=== PATIENT | female | born 1965 | race Caucasian/White ===

== ENCOUNTER 2016-06-16 10:55 | Emergency (ER) | payer MEDICAID, OTHER ==
[~2016-06-16] VITALS: Ht 162.6 cm; Wt 56.7 kg
[~2016-06-16 10:55] MED LIST: ALPR2TAB2 PO; CARI250T PO; LEVO25TA2 PO; LISI30TA4 PO; METH40TA2 PO
[2016-06-16 11:24] VITALS: BP 137/78
== END 2016-06-16 11:26 | disposition home or self-care (01) ==
LOC: ER 10:58
DX: R68.84 Jaw pain (principal); R56.9 Unspecified convulsions; F17.210 Nicotine dependence, cigarettes, uncomplicated; Z88.0 Allergy status to penicillin
CPT/HCPCS: 99283; A4606; Z7610

== ENCOUNTER 2016-08-13 10:02 | Emergency (ER) | payer MEDICAID ==
[~2016-08-13] VITALS: Ht 167.6 cm; Wt 70.8 kg
[2016-08-13] MEDS ORDERED: ONDANSETRON HCL/PF 4 MG/2 ML VIAL ONE (11:52)
[2016-08-13] MEDS ORDERED: IV SET PRIMARY 1 EA INFUS.SET MC ONE (11:52)
[2016-08-13] MEDS ORDERED: IV NS 0.9% 1,000 ML ONE (11:52)
[2016-08-13 11:58] LABS: BASOPHILS % (AUTO) 0.4 % (0.0-2.0); EOSINOPHILS # (AUTO) 0.2 /CMM (0.0-0.7); EOSINOPHILS % (AUTO) 2.8 % (0.0-6.0); HEMATOCRIT 39 % (33-45); LYMPHOCYTES # (AUTO) 1.6 /CMM (0.8-4.8); LYMPHOCYTES % (AUTO) 23.9 % (20.0-44.0); MEAN CORPUSCULAR HEMOGLOBIN 30 PG (26.0-33.0); MEAN CORPUSCULAR HGB CONC 34 g/dl (31.0-36.0); MEAN CORPUSCULAR VOLUME 88 fL (82-100); MONOCYTES # (AUTO) 0.5 /CMM (0.1-1.30); MONOCYTES % (AUTO) 6.9 % (2.0-12.0); NEUTROPHILS # (AUTO) 4.3 /CMM (1.8-8.9); PLATELET COUNT (AUTO) 243 /CMM (150-450); RED BLOOD CELL COUNT(AUTO) 4.38 MIL/uL (4.0-5.2); WHITE BLOOD COUNT (AUTO) 6.6 K/uL (4.3-11.0)
[2016-08-13] MEDS ORDERED: ONDANSETRON HCL/PF 4 MG/2 ML VIAL IVP ONE (12:00)
[2016-08-13] MEDS ORDERED: IV NS 0.9% 1,000 ML BAG IV ONE (12:00)
--- NOTE | 2016-08-13 12:05 | NUR ---
PT AMBULATORY TO ER BED 16. C/O NAUSEA AND VOMITING FOR "MONTHS" STATES WORST THE LAST WEEK. BEEN TO OTHER ER FOR SAME REASON. VSS. NAD NOTED. AWAITING MD DALAL.
--- NOTE | 2016-08-13 12:08 | NUR ---
DR LISA AT BEDSIDE FOR EVAL.
[2016-08-13 12:21] LABS: PROTHROMBIN TIME 10.7 SECS (9.5-12.7)
[2016-08-13 12:48] LABS: CALCIUM, SERUM 8.6 mg/dL (8.5-10.1); CREATININE 0.8 mg/dL (0.6-1.3); POTASSIUM 3.6 mmol/L (3.5-5.1)
[2016-08-13 12:54] LABS: ALBUMIN 3.7 g/dL (3.4-5.0); BILIRUBIN,DIRECT 0.1 mg/dL (0.0-0.2); BILIRUBIN,TOTAL 0.3 mg/dL (0.2-1.0)
--- NOTE | 2016-08-13 13:35 | NUR ---
Patient discharged to home in stable condition. Written and verbal after care instructions given. Patient verbalizes understanding of instruction.IV removed. Catheter intact and site benign. Pressure and 4x4 applied to site. No bleeding noted.
[2016-08-13 13:36] VITALS: BP 132/76
== END 2016-08-13 13:37 | disposition home or self-care (01) ==
LOC: ER 10:03
DX: R11.2 Nausea with vomiting, unspecified (principal); R19.7 Diarrhea, unspecified; N63 Unspecified lump in breast; G40.909 Epilepsy, unspecified, not intractable, without status epilepticus; M19.90 Unspecified osteoarthritis, unspecified site; F41.9 Anxiety disorder, unspecified; F32.9 Major depressive disorder, single episode, unspecified; E03.9 Hypothyroidism, unspecified; B19.20 Unspecified viral hepatitis C without hepatic coma; F17.210 Nicotine dependence, cigarettes, uncomplicated; Z88.0 Allergy status to penicillin
CPT/HCPCS: 36415; 80048-TC; 80076-TC; 83690-TC; 85025-TC; 85730-TC; A4606; J2405; J7030; Z7610

== ENCOUNTER 2021-07-08 09:11 | Emergency (ER) | payer OTHER ==
[~2021-07-08] VITALS: Ht 162.6 cm; Wt 72.6 kg
[2021-07-08 09:32] VITALS: BP 117/68
--- NOTE | 2021-07-08 10:40 | NUR ---
WAITING FOR CENTRAL SUPPLY TO BRING CANE
--- NOTE | 2021-07-08 10:49 | NUR ---
Patient discharged to home in stable condition. Written and verbal after care instructions given. Patient verbalizes understanding of instruction.
== END 2021-07-08 11:13 | disposition home or self-care (01) ==
LOC: ER 09:16
DX: M17.12 Unilateral primary osteoarthritis, left knee (principal); F41.9 Anxiety disorder, unspecified; F32.9 Major depressive disorder, single episode, unspecified; M79.7 Fibromyalgia; E03.9 Hypothyroidism, unspecified; G89.29 Other chronic pain; M25.511 Pain in right shoulder; I51.7 Cardiomegaly; Z86.19 Personal history of other infectious and parasitic diseases; Z86.69 Personal history of other diseases of the nervous system and sense organs; Z88.0 Allergy status to penicillin; Z79.811 Long term (current) use of aromatase inhibitors; Z79.1 Long term (current) use of non-steroidal anti-inflammatories (NSAID); Z79.899 Other long term (current) drug therapy
CPT/HCPCS: 73564-TC

== ENCOUNTER 2022-12-21 04:52 | Emergency (ER) | payer OTHER ==
[~2022-12-21] VITALS: Ht 162.6 cm; Wt 86.2 kg
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
--- NOTE | 2022-12-21 05:35 | NUR ---
PT TAKEN TO CT W/ TECH
--- NOTE | 2022-12-21 05:54 | NUR ---
PATIENT RERTUNE TO ROOM FROM CT
[2022-12-21] MEDS ORDERED: ACETAMINOPHEN ES 500 MG TABLET ONE (06:54)
[2022-12-21] MEDS ORDERED: ACETAMINOPHEN ES 500 MG TABLET PO ONE (07:00)
--- NOTE | 2022-12-21 07:15 | NUR ---
Patient discharged to home in stable condition. Written and verbal after care instructions given. Patient verbalizes understanding of instruction.
[2022-12-21 07:18] VITALS: BP 138/80; TEMP 98.1; O2SAT 98
== END 2022-12-21 07:19 | disposition home or self-care (01) ==
LOC: ER 04:58
DX: S90.31XA Contusion of right foot, initial encounter (principal); G40.909 Epilepsy, unspecified, not intractable, without status epilepticus; F41.9 Anxiety disorder, unspecified; F32.A Depression, unspecified; F17.200 Nicotine dependence, unspecified, uncomplicated; Z98.890 Other specified postprocedural states; Z79.899 Other long term (current) drug therapy; Z88.0 Allergy status to penicillin; V09.9XXA Pedestrian injured in unspecified transport accident, initial encounter; Y93.89 Activity, other specified; Y92.89 Other specified places as the place of occurrence of the external cause; Y99.8 Other external cause status
CPT/HCPCS: 70450-TC; 72131-TC; 73030-TC; 73590-TC; 73630-TC

== ENCOUNTER 2023-04-11 08:35 | Emergency (ER) | payer OTHER ==
[~2023-04-11] VITALS: Ht 162.6 cm; Wt 81.6 kg
[2023-04-11] MEDS ORDERED: ACETAMINOPHEN ES 500 MG TABLET ONE (08:57)
[2023-04-11] MEDS ORDERED: ACETAMINOPHEN ES 500 MG TABLET PO ONE (09:00)
[2023-04-11] MEDS ORDERED: IBUPROFEN 600 MG TABLET PO ONE (10:00)
[2023-04-11] MEDS ORDERED: IBUPROFEN 600 MG TABLET ONE (10:04)
[2023-04-11 10:23] VITALS: BP 125/86; TEMP 98.3; O2SAT 98
== END 2023-04-11 10:05 | disposition home or self-care (01) ==
LOC: ER 08:39
DX: S00.83XA Contusion of other part of head, initial encounter (principal); M19.90 Unspecified osteoarthritis, unspecified site; F41.9 Anxiety disorder, unspecified; F32.A Depression, unspecified; M79.7 Fibromyalgia; E03.9 Hypothyroidism, unspecified; W18.09XA Striking against other object with subsequent fall, initial encounter; Y93.89 Activity, other specified; Y92.89 Other specified places as the place of occurrence of the external cause; Y99.8 Other external cause status; Z88.0 Allergy status to penicillin
CPT/HCPCS: 70450-TC

== ENCOUNTER 2025-03-07 22:58 | Emergency (ER) | payer OTHER ==
[~2025-03-07] VITALS: Ht 167.6 cm; Wt 88.5 kg
[2025-03-07] MEDS ORDERED: OLANZAPINE 10 MG VIAL IM ONE (23:33)
[2025-03-07 23:38] LABS: PLATELET COUNT (AUTO) 324 K/uL (150-450); RED BLOOD CELL COUNT(AUTO) 3.83 MIL/uL (4.0-5.2); RED CELL DISTRIBUTION WIDTH 16.4 % (11.5-15.0); WHITE BLOOD COUNT (AUTO) 7.6 K/uL (4.3-11.0)
[2025-03-07] MEDS: OLANZAPINE 10 MG VIAL IM ONE (23:39)
[2025-03-07 23:47] LABS: CALCIUM, SERUM 10.2 mg/dL (8.5-10.1); CREATININE 1.2 mg/dL (0.6-1.3); SODIUM SERUM 141 mmol/L (136-145); UREA NITROGEN, BLOOD 21 mg/dL (7-18)
[2025-03-07 23:53] LABS: ASPARTATE AMINOTRANSFERASE 18 U/L (15-37); TOTAL PROTEIN, SERUM 7.3 g/dL (6.4-8.2)
[2025-03-08 00:48] LABS: APPEARANCE,URINE CLOUDY (CLEAR); BLOOD, URINE TRACE-INTA Ery/uL (NEGATIVE); LEUKOCYTE ESTERASE ,URINE 2+ (NEGATIVE); NITRITE, URINE NEGATIVE (NEGATIVE); UGLUCOSE NEGATIVE (NEGATIVE)
[2025-03-08 00:54] LABS: BARBITURATE, URINE NEGATIVE (NEGATIVE); COCCAINE, URINE NEGATIVE (NEGATIVE)
[2025-03-08 00:57] LABS: AMPHETAMINE, URINE POSITIVE (NEGATIVE); BENZODIAZEPINE, URINE POSITIVE (NEGATIVE); CANNABINOID, URINE POSITIVE (NEGATIVE); OPIATE, URINE POSITIVE (NEGATIVE)
[2025-03-08 01:06] LABS: ADD URINE CULTURE YES; SQUAMOUS EPITHELIAL CELL,UR 0-2 /HPF (None Seen)
[2025-03-08] MEDS ORDERED: LEVOFLOXACIN (250MG) 250 MG TABLET ONE (01:50)
[2025-03-08] MEDS: LEVOFLOXACIN (250MG) 250 MG TABLET PO ONE (01:57)
[2025-03-08 05:25] VITALS: BP 130/75; TEMP 98; O2SAT 98
== END 2025-03-08 05:26 | disposition home or self-care (01) ==
LOC: ER 23:01
DX: N39.0 Urinary tract infection, site not specified (principal); F19.10 Other psychoactive substance abuse, uncomplicated; E86.0 Dehydration; F32.A Depression, unspecified; F41.9 Anxiety disorder, unspecified; F17.210 Nicotine dependence, cigarettes, uncomplicated; E03.9 Hypothyroidism, unspecified; G40.909 Epilepsy, unspecified, not intractable, without status epilepticus; G89.29 Other chronic pain; M79.7 Fibromyalgia; M19.011 Primary osteoarthritis, right shoulder; D64.9 Anemia, unspecified; Z79.890 Hormone replacement therapy; Z79.899 Other long term (current) drug therapy; Z86.19 Personal history of other infectious and parasitic diseases; Z88.0 Allergy status to penicillin
CPT/HCPCS: 99285; 85025; 80048; 80076; 36415; 80143; 80307; 87077; 87086; 87186; 81001; J3490